=== PATIENT | male | born 1985 | race African-American/Black ===

== ENCOUNTER 2017-03-24 16:12 | Emergency (ER) | payer SELFPAY ==
[~2017-03-24] VITALS: Ht 177.8 cm; Wt 106.5 kg
[~2017-03-24 16:12] MED LIST: AUGM875T PO
[2017-03-24 16:24] VITALS: BP 144/86; PULSE 75; RESP 16; TEMP 98.5; O2SAT 99
[2017-03-24] MEDS ORDERED: AMOX500T PO (19:28)
--- NOTE | 2017-03-24 19:28 | PD ---
HPI Chief Complaint: ENT Complaint Time Seen by Provider: 19:25 Travel History International Travel<30 days: No Contact w/Intl Traveler<30days: No Traveled to known affect area: No History of Present Illness HPI 31-year-old male presents emergency department for evaluation of left ear pain 1 day. Patient reports he had URI-like symptoms over the past week. He denies fever or chills. He reports the pain is constant, nonradiating, no aggravating or alleviating factors. Severity 4/10. PFSH Past Medical History Medical History: Denies Significant Hx Diminished Hearing: No Immunizations Current: No Tetanus Vaccination: < 5 Years Influenza Vaccination: No Past Surgical History Surgical History: No Previous Surgery Social History Alcohol Use: Yes (Socially) Tobacco Use: No (quit) Substance Use: No Allergies-Medications (Allergen,Severity, Reaction): Coded Allergies: No Known Allergies (Verified , 03/24/17) Reported Meds & Prescriptions Reported Meds & Active Scripts Active No Active Prescriptions or Reported Medications Review of Systems Except as stated in HPI: all other systems reviewed are Neg General / Constitutional: No: Fever Eyes: No: Visual changes HENT: Positive: Earache, No: Headaches Cardiovascular: No: Chest Pain or Discomfort Respiratory: No: Shortness of Breath Gastrointestinal: No: Abdominal Pain Physical Exam Narrative GENERAL: Well-nourished, well-developed patient. SKIN: Focused skin assessment warm/dry. HEAD: Normocephalic. EYES: No scleral icterus. No injection or drainage. EARS: Left TM erythema, bulging, loss of landmarks. No perforation. No swelling of the canal. No drainage. No mastoid tenderness. NECK: Supple, trachea midline. No JVD or lymphadenopathy. CARDIOVASCULAR: Regular rate and rhythm without murmurs, gallops, or rubs. RESPIRATORY: Breath sounds equal bilaterally. No accessory muscle use. GASTROINTESTINAL: Abdomen soft, non-tender, nondistended. MUSCULOSKELETAL: No cyanosis, or edema. BACK: Nontender without obvious deformity. No CVA tenderness. Data Data Last Documented VS Vital Signs Date Time Temp Pulse Resp B/P (MAP) Pulse Ox O2 Delivery O2 Flow Rate FiO2 03/24/17 19:13 (105) 03/24/17 16:24 98.5 75 16 99 Room Air MDM Medical Decision Making Medical Screen Exam Complete: Yes Emergency Medical Condition: Yes Differential Diagnosis Acute otitis media, otitis externa, otalgia, URI Narrative Course 31-year-old male percents emergency department for evaluation of left ear pain 1 day. On exam patient has a red bulging TM on the left side. Patient be treated for acute otitis media. Diagnosis Primary Impression: Otitis media Qualified Codes: H66.92 - Otitis media, unspecified, left ear Referrals: Primary Care Physician Scripts Amoxicillin (Amoxicillin) 500 Mg Tab 500 MG PO TID for Infection, #30 TAB 0 Refills Prov: Arlen Schulz 03/24/17 Disposition: 01 DISCHARGE HOME Condition: Stable Arlen Schulz Mar 24, 2017 19:28
== END 2017-03-24 19:40 | disposition home or self-care (01) ==
LOC: PHED 16:12 → PHEFT 19:40
DX: H66.92 Otitis media, unspecified, left ear (principal); Z87.891 Personal history of nicotine dependence
CPT/HCPCS: 99283